=== PATIENT | female | born 1965 | race Caucasian/White ===

== ENCOUNTER 2019-12-21 06:46 | Emergency (ER) | payer OTHER ==
[~2019-12-21] VITALS: Ht 177.8 cm; Wt 90.7 kg
[2019-12-21 06:52] VITALS: BP 146/96
--- NOTE | 2019-12-21 07:01 | NUR ---
PATIENT CAME TO ER BED 4 C/O RIGHT EAR PAIN SINCE MONDAY. PATIENT STATES THAT SHE HAS NOT HAD THIS SAME EAR PAIN FOR OVER 2 YEARS. PATIENT DENIES TAKING ANY MEDICATION FOR HER RIGHT EAR. AAOX4. NO SOB. BREATHING EVENLY AND UNLABORED ON ROOM AIR.
--- NOTE | 2019-12-21 07:04 | NUR ---
SEEN AND EXAMINED BY
--- NOTE | 2019-12-21 07:11 | NUR ---
Instructions for prescription provided to patient.
--- NOTE | 2019-12-21 07:11 | NUR ---
Patient discharged to home in stable condition. Written and verbal after care instructions given. Patient verbalizes understanding of instruction.
== END 2019-12-21 07:12 | disposition home or self-care (01) ==
LOC: ER 06:52
DX: H60.91 Unspecified otitis externa, right ear (principal); I10 Essential (primary) hypertension; Z88.0 Allergy status to penicillin; Z60.2 Problems related to living alone